=== PATIENT | male | born 1995 ===

== ENCOUNTER 2016-12-01 16:07 | Emergency (ER) | payer SELFPAY ==
[2016-12-01 16:23] VITALS: BP 119/82; PULSE 58; TEMP 97.4; BMI 24.9
[2016-12-01] MEDS ORDERED: CEPHALEXIN MONOHYDRATE 500 MG CAPSULE (UD) ONE (17:16)
[2016-12-01] MEDS ORDERED: diphenhydrAMINE HCL 25 MG CAPSULE (FP) PO ONE ×2 (17:16→17:21)
[2016-12-01] MEDS ORDERED: CEPHALEXIN MONOHYDRATE 500 MG CAPSULE (UD) PO ONE (17:20)
--- NOTE | 2016-12-01 17:26 | PDOC ---
History of Present Illness - General History Source: Patient Exam Limitations: No Limitations - History of Present Illness Initial Comments: 12/01/16 17:30 Chief complaint: Right arm swelling and itchiness History of present illness: The patient is a 21 year old male, who presents to the emergency department with a red upper extremity swelling and itchiness for the past 2 days. He denies any kind of pain. He states that it started small and has exacerbated throughout his forearm. He notes that he does feel some arm tightness. He denies any change in his normal routine, any recent travel or sick contacts. He denies fever, chills or any other rashes. Allergies: None Past medical history: None reported Past surgical history: None reported Social history: Alcohol use. <Dean Moreno - Last Filed: 12/01/16 17:30> <Bryson Garber - Last Filed: 12/01/16 17:47> - General Chief Complaint: Allergic Reaction Stated Complaint: RIGHT ARM ITCHING/REDNESS/SWELLING Time Seen by Provider: 12/01/16 16:21 Past History <Dean Moreno - Last Filed: 12/01/16 17:30> - Past Medical History Other medical history: DENIES - Psycho/Social/Smoking Cessation Hx Anxiety: No Suicidal Ideation: No Smoking History: Never smoked Hx Alcohol Use: Yes Drug/Substance Use Hx: No Substance Use Type: Alcohol <Bryson Garber - Last Filed: 12/01/16 17:47> - Past Medical History Allergies/Adverse Reactions: Allergies Allergy/AdvReac Type Severity Reaction Status Date / Time No Known Allergies Allergy Verified 12/01/16 16:08 Home Medications: Ambulatory Orders Cephalexin Monohydrate [Keflex] 500 mg PO Q6H #30 capsule 12/01/16 Diphenhydramine [Benadryl -] 50 mg PO TID #15 capsule 12/01/16 Review of Systems - Review of Systems Able to Perform ROS?: Yes Comments:: 12/01/16 17:30 GENERAL/CONSTITUTIONAL: No fever or chills. No weakness. HEAD, EYES, EARS, NOSE AND THROAT: No change in vision. No ear pain or discharge. No sore throat. CARDIOVASCULAR: No chest pain or shortness of breath RESPIRATORY: No cough, wheezing, or hemoptysis. GASTROINTESTINAL: No nausea, vomiting, diarrhea or constipation. GENITOURINARY: No dysuria, frequency, or change in urination. MUSCULOSKELETAL: No joint or muscle swelling or pain. No neck or back pain. SKIN: +Right arm erythema and swelling. NEUROLOGIC: No headache, vertigo, loss of consciousness, or change in strength/ sensation. ENDOCRINE: No increased thirst. No abnormal weight change HEMATOLOGIC/LYMPHATIC: No anemia, easy bleeding, or history of blood clots. <Dean Moreno - Last Filed: 12/01/16 17:30> *Physical Exam - Vital Signs Last Vital Signs Temp Pulse Resp BP Pulse Ox 97.4 F L 58 L 18 119/82 100 12/01/16 16:08 12/01/16 16:08 12/01/16 16:08 12/01/16 16:08 12/01/16 16:08 - Physical Exam Comments: 12/01/16 17:31 GENERAL: Awake, alert, and fully oriented, in no acute distress HEAD: No signs of trauma, normocephalic, atraumatic EYES: PERRLA, EOMI, sclera anicteric, conjunctiva clear ENT: Auricles normal inspection, hearing grossly normal, nares patent, oropharynx clear without exudates. Moist mucosa NECK: Normal ROM, supple, no lymphadenopathy, JVD, or masses LUNGS: No distress, speaks full sentences, clear to auscultation bilaterally HEART: Regular rate and rhythm, normal S1 and S2, no murmurs, rubs or gallops, peripheral pulses normal and equal bilaterally. ABDOMEN: Soft, nontender, normoactive bowel sounds. No guarding, no rebound. No masses EXTREMITIES: Normal inspection, Normal range of motion. No clubbing or cyanosis. NEUROLOGICAL: Cranial nerves II through XII grossly intact. Normal speech, normal gait, no focal sensorimotor deficits SKIN: +Diffused erythema and warmth involving the right forearm. No skin injury or lesion of the hand or arm is apparent, no lymphangitic streaking and no lymphadenopathy. The area of involvement is completely nontender. <Dean Morneo - Last Filed: 12/01/16 17:30> - Vital Signs Last Vital Signs Temp Pulse Resp BP Pulse Ox 97.4 F L 58 L 18 119/82 100 12/01/16 16:08 12/01/16 16:08 12/01/16 16:08 12/01/16 16:08 12/01/16 16:08 <Bryson Garber - Last Filed: 12/01/16 17:47> ED Treatment Course - Medications Given in the ED: ED Medications Discontinued Medications Generic Name Dose Route Start Last Admin Trade Name Soheila PRN Reason Stop Dose Admin Cephalexin HCl 500 mg 12/01/16 17:20 12/01/16 17:22 Keflex - PO 12/01/16 17:21 500 mg ONCE ONE Administration Diphenhydramine HCl 25 mg 12/01/16 17:21 12/01/16 17:22 Benadryl - PO 12/01/16 17:22 25 mg ONCE ONE Administration <Dean Moreno - Last Filed: 12/01/16 17:30> Medical Decision Making - Medical Decision Making 12/01/16 17:45 Most likely etiology of the erythema and swelling is a localized ALLERGIC reaction, probably to an insect bite. Early cellulitis is also possible, but this is unlikely since there is absolutely no pain or tenderness associated with the skin findings. An antihistamine and antibiotic prescribed, a sling was applied, rest and elevation was recommended, and close follow-up within 24-48 hours if the rash did not significantly improve, or especially if it continued to enlarge. Patient was instructed to return to the emergency room. Fully ambulatory and in no pain or other discomfort upon discharge with significant other to follow-up as directed <Bryson Garber - Last Filed: 12/01/16 17:47> *DC/Admit/Observation/Transfer - Attestations Scribe Attestion: 12/01/16 17:31 Documentation prepared by Dean Moreno, acting as certified medical dosimetrist for Bryson Mccoy MD <Dean Moreno - Last Filed: 12/01/16 17:30> - Discharge Dispostion Admit: No <Bryson Garber - Last Filed: 12/01/16 17:47> Diagnosis at time of Disposition: Allergic reaction Qualifiers: Encounter type: initial encounter Qualified Code(s): T78.40XA - Allergy, unspecified, initial encounter Cellulitis Qualifiers: Site of cellulitis: extremity Site of cellulitis of extremity: upper extremity Laterality: right Qualified Code(s): L03.113 - Cellulitis of right upper limb - Discharge Dispostion Disposition: HOME Condition at time of disposition: Stable - Prescriptions Prescriptions: Diphenhydramine [Benadryl -] 50 mg PO TID #15 capsule Cephalexin Monohydrate [Keflex] 500 mg PO Q6H #30 capsule - Referrals Referrals: Jeremias Glass MD [Staff Physician] - 2 Days - Patient Instructions Printed Discharge Instructions: DI for General Allergic Reactions, DI for Cellulitis -- Adult - Post Discharge Activity Work/School Note: Back to Work
== END 2016-12-01 17:31 | disposition home or self-care (01) ==
LOC: FER 16:07
DX: T78.40XA Allergy, unspecified, initial encounter (principal); L03.113 Cellulitis of right upper limb; X58.XXXA Exposure to other specified factors, initial encounter; Y93.9 Activity, unspecified
CPT/HCPCS: 99281-25